=== PATIENT | male | born 1990 | race Hispanic/Latino ===

== ENCOUNTER 2021-10-08 19:20 | Inpatient (IN) | payer SELFPAY ==
[~2021-10-08 19:20] MED LIST: ISOVUE-370 76%-LOCM 1 ML ONE
[2021-10-08 20:01] LABS: #Lymphocytes 0.8 thou/uL (1.20-3.40); #Monocytes 0.3 thou/uL (0.11-0.59); %Basophils 0.2 % (0.0-1.0); %Eosinophils 0.1 % (0.0-10.0); %Lymphocytes 8.4 % (21.0-51.0); %Monocytes 3.3 % (0.0-10.0); Mean Corpuscular HGB CONC 35.3 g/dL (32.0-36.0); Mean Corpuscular Hemoglobin 32.4 pg (27.0-31.0); Mean Corpuscular Volume 91.8 fL (78.0-98.0); Mean Platelet Volume 7.1 fL (7.4-10.4); Platelet Count 180 thou/uL (130-400); RBC Distribution Width 11.9 % (11.5-14.5); Red Blood Cell (RBC) Count 4.96 mill/uL (4.70-6.10); White Blood Cell (WBC) Count 9.1 thou/uL (4.8-10.8)
[2021-10-08 20:21] LABS: ALT (SGPT) 22 U/L (8-55); AST (SGOT) 36 U/L (5-34); Albumin 4.5 g/dL (3.5-5.0); Alkaline Phosphatase 114 U/L (40-110); Anion Gap 18 mmol/L (10-20); BUN (Urea Nitrogen) 12 mg/dL (8.9-20.6); Bilirubin, Total 0.9 mg/dL (0.2-1.2); Calc. Creatinine Clearance 0 mL/min (70-130); Calcium 9.4 mg/dL (7.8-10.44); Carbon Dioxide 24 mmol/L (22-29); Chloride 99 mmol/L (98-107); Estimated GFR 119; Globulin 3.6 g/dL (2.4-3.5); Glucose 131 mg/dL (70-105); Lipase 17 U/L (8-78); Potassium 3.5 mmol/L (3.5-5.1); Protein, Total 8.1 g/dL (6.0-8.3); Sodium 137 mmol/L (136-145)
[2021-10-08] MEDS ORDERED: Dicyclomine 20 MG/2 ML VIAL ONE (20:31)
[2021-10-08] MEDS ORDERED: Ketorolac Tromethamine 30 MG/ML VIAL ONE (20:31)
[2021-10-08] MEDS ORDERED: Ondansetron PF 4 MG/2 ML Vial ONE (20:31)
[2021-10-08] MEDS ORDERED: Acetaminophen 500 MG TAB ONE (20:31)
[2021-10-08] MEDS ORDERED: Pantoprazole 40 MG VIAL ONE (20:59)
[2021-10-08 22:32] LABS: SARS-CoV-2 NAA Rapid Test Not Detected (NotDetected)
[2021-10-08] MEDS ORDERED: Lorazepam (BATCHED) 2 MG/ML SYR ONE (23:13)
[2021-10-08 23:37] LABS: Bilirubin Negative (Negative); Blood, Urine Negative (Negative); Clarity Clear (Clear); Glucose, Urine (Dipstick) Normal (Negative); Ketone, Urine 20 mg/dL (Negative); Leukocyte Negative Leu/uL (Negative); Nitrite Negative (Negative); Protein, Urine (Dipstick) Negative (Neg-Trace); Specific Gravity, Urine 1.042 (1.002-1.036); Urobilinogen Normal mg/dL (Less than 2)
[2021-10-09 00:36] VITALS: BMI 29.7
[2021-10-09] MEDS ORDERED: Ondansetron PF 4 MG/2 ML Vial IVP PRN (00:45)
[2021-10-09] MEDS ORDERED: Acetaminophen 325 MG TAB PO PRN (00:45)
[2021-10-09] MEDS ORDERED: Ondansetron ODT 4 MG TAB SL PRN (00:45)
[2021-10-09] MEDS ORDERED: Lorazepam 2 MG/ML VIAL IM PRN (03:57)
[2021-10-09] MEDS ORDERED: Ondansetron ODT 4 MG TAB PO PRN (03:57)
[2021-10-09] MEDS ORDERED: Lorazepam 1 MG TAB PO PRN (03:57)
[2021-10-09] MEDS ORDERED: Thiamine HCl 200 MG/2 ML VIAL SLOW IVP SCH (04:00)
[2021-10-09] MEDS ORDERED: Electrolyte Replacement Protocol 1 EACH FS SCH (04:00)
[2021-10-09] MEDS: Lorazepam 1 MG TAB PO SCH ×2 (04:19→10:40)
[2021-10-09 05:00] LABS: Amphetamine Not Detected (NotDetected); Barbiturates Screen Not Detected (NotDetected); Benzodiazepine Screen Detected (NotDetected); Cocaine Metabolite Screen Not Detected (NotDetected); Methadone Not Detected (NotDetected); Methamphetamine Not Detected (NotDetected); Opiate Screen Not Detected (NotDetected); Oxycodone Screen Not Detected (NotDetected); Phencyclidine (PCP) Not Detected (NotDetected); THC/Cannabinoid Screen Not Detected (NotDetected); Tricyclic Screen Not Detected (NotDetected)
[2021-10-09] MEDS ORDERED: Sodium Chloride 0.9% 1,000 ML IV SCH ×2 (05:00)
[2021-10-09 05:03] LABS: #Lymphocytes 0.5 thou/uL (1.20-3.40); #Monocytes 0.3 thou/uL (0.11-0.59); #Neutrophils 6.5 thou/uL (1.40-6.50); %Basophils 0.6 % (0.0-1.0); %Eosinophils 0.1 % (0.0-10.0); %Lymphocytes 6.8 % (21.0-51.0); %Monocytes 4.3 % (0.0-10.0); %Neutrophils 88.2 % (42.0-75.0); Hemoglobin 14.9 g/dL (14.0-18.0); Mean Corpuscular HGB CONC 34.4 g/dL (32.0-36.0); Mean Corpuscular Hemoglobin 31.8 pg (27.0-31.0); Mean Corpuscular Volume 92.6 fL (78.0-98.0); Platelet Count 140 thou/uL (130-400); RBC Distribution Width 11.8 % (11.5-14.5); Red Blood Cell (RBC) Count 4.67 mill/uL (4.70-6.10); White Blood Cell (WBC) Count 7.4 thou/uL (4.8-10.8)
[2021-10-09 05:22] LABS: Anion Gap 14 mmol/L (10-20); BUN (Urea Nitrogen) 12 mg/dL (8.9-20.6); Calc. Creatinine Clearance 158 mL/min (70-130); Calcium 8.9 mg/dL (7.8-10.44); Carbon Dioxide 25 mmol/L (22-29); Chloride 99 mmol/L (98-107); Estimated GFR 125; Glucose 104 mg/dL (70-105); Potassium 3.5 mmol/L (3.5-5.1); Sodium 134 mmol/L (136-145)
[2021-10-09] MEDS ORDERED: Piperacillin/Tazobactam 3.375 GM in Sodium Chloride 0.9% 100 ML IVPB SCH ×2 (06:15→10:00)
[2021-10-09] MEDS ORDERED: Lactated Ringer's 1,000 ML IV SCH (07:30)
[2021-10-09] MEDS ORDERED: VANCOMYCIN 2 GRAM/500 ML BAG 2 GM in Premix Bag 1 BAG IVPB SCH (08:00)
[2021-10-09] MEDS ORDERED: Potassium Chloride 20 MEQ TAB PO SCH (08:00)
[2021-10-09] MEDS ORDERED: Folic Acid 1 MG TAB PO SCH (09:00)
[2021-10-09] MEDS ORDERED: Pantoprazole 40 MG VIAL IVP SCH (09:00)
[2021-10-09] MEDS ORDERED: Multivit, Therapeutic 1 TAB PO SCH (09:00)
[2021-10-09 11:41] VITALS: BP 140/97; TEMP 99
[2021-10-09] MEDS ORDERED: VANCOMYCIN 1.25 GM/250 ML BAG 1.25 GM in Premix Bag 1 BAG IVPB SCH (16:00)
[2021-10-10] MEDS ORDERED: Lorazepam 1 MG TAB PO PRN (03:57)
[2021-10-11] MEDS ORDERED: Lorazepam 1 MG TAB PO PRN (03:57)
[2021-10-11] MEDS ORDERED: Lorazepam 0.5 MG TAB PO SCH (04:00)
[2021-10-12] MEDS ORDERED: Lorazepam 0.5 MG TAB PO PRN (03:57)
[2021-10-12] MEDS ORDERED: Thiamine 100 MG TAB PO SCH (09:00)
== END 2021-10-09 16:15 | disposition home or self-care (01) | DRG 896 ==
LOC: ERS 19:20 → 2SW 23:29 → OBSVTOIN 10-09 11:30
PROVIDERS: ADMIT Student in an Organized Health Care Education/Training Program; ATTEND Internal Medicine
DX: F10.239 Alcohol dependence with withdrawal, unspecified (principal); K85.90 Acute pancreatitis without necrosis or infection, unspecified; Z20.822 Contact with and (suspected) exposure to COVID-19; R50.9 Fever, unspecified; Z88.6 Allergy status to analgesic agent; Z71.41 Alcohol abuse counseling and surveillance of alcoholic
CPT/HCPCS: 36415; 71045; 74177; 80048; 80053; 80306; 81003; 83690; 85025; 87040; 87804; 93005; 96361; 96375; C9113; G0378; J1885; J2060; J2405; J2543; J3370; J3411; J3490; J7050; J7120; Q9966; U0002

== ENCOUNTER 2023-06-19 10:19 | Emergency (ER) | payer SELFPAY ==
[2023-06-19] MEDS ORDERED: Ondansetron PF 4 MG/2 ML Vial ONE (10:56)
[2023-06-19] MEDS ORDERED: Thiamine HCl 200 MG/2 ML VIAL ONE (11:01)
[2023-06-19] MEDS ORDERED: LORazepam 2 MG/ML SYR.(CARPUJECT) ONE (11:02)
[2023-06-19 11:13] LABS: #Basophils Less than 0.03 10x3/uL (0.0-0.2); %Basophils 0.3 % (0.0-1.0); %Eosinophils 2.9 % (0.0-10.0); %Lymphocytes 29.1 % (21.0-51.0); %Monocytes 2.9 % (0.0-10.0); %Neutrophils 64.6 % (42.0-75.0); Hematocrit 44.7 % (42.0-52.0); Hemoglobin 15.7 g/dL (14.0-18.0); Mean Corpuscular HGB CONC 35.1 g/dL (32.0-36.0); Mean Corpuscular Hemoglobin 30.8 pg (27.0-31.0); Mean Corpuscular Volume 87.8 fL (78.0-98.0); Mean Platelet Volume 9.7 fL (7.4-10.4); Platelet Count 221 10x3/uL (130-400); RBC Distribution Width 12.6 % (11.5-14.5); Red Blood Cell (RBC) Count 5.09 mill/uL (4.70-6.10)
[2023-06-19 11:29] LABS: ALT (SGPT) 17 U/L (8-55); AST (SGOT) 24 U/L (5-34); Albumin 4.7 g/dL (3.5-5.0); Alkaline Phosphatase 97 U/L (40-110); Anion Gap 19 mmol/L (10-20); BUN (Urea Nitrogen) 11 mg/dL (8.9-20.6); Bilirubin, Total 0.6 mg/dL (0.2-1.2); Calc. Creatinine Clearance 0 mL/min (70-130); Calcium 9.6 mg/dL (7.8-10.44); Carbon Dioxide 22 mmol/L (22-29); Chloride 105 mmol/L (98-107); Estimated GFR 123; Globulin 3.1 g/dL (2.4-3.5); Glucose 134 mg/dL (70-105); Lipase 13 U/L (8-78); Potassium 3.6 mmol/L (3.5-5.1); Protein, Total 7.8 g/dL (6.0-8.3); Sodium 142 mmol/L (136-145)
[2023-06-19 11:32] LABS: Troponin I Less than 0.010 ng/mL (< 0.028)
== END 2023-06-19 13:00 | disposition home or self-care (01) ==
LOC: ERS 10:19
DX: R11.2 Nausea with vomiting, unspecified (principal); F19.10 Other psychoactive substance abuse, uncomplicated; F10.20 Alcohol dependence, uncomplicated
CPT/HCPCS: 80053; 83605; 83690; 84484; 85025; 93005; 96361; 96374; 96375; J2060; J2405; J3411

== ENCOUNTER 2023-08-30 04:50 | Emergency (ER) | payer SELFPAY ==
[2023-08-30] MEDS ORDERED: LORazepam 2 MG/ML SYR.(CARPUJECT) ONE (05:02)
[2023-08-30 05:47] LABS: #Basophils Less than 0.03 10x3/uL (0.0-0.2); #Eosinphils Less than 0.03 10x3/uL (0.0-0.7); %Basophils 0.2 % (0.0-1.0); %Lymphocytes 19.3 % (21.0-51.0); %Monocytes 7.3 % (0.0-10.0); %Neutrophils 73.1 % (42.0-75.0); Hematocrit 39.7 % (42.0-52.0); Hemoglobin 14.1 g/dL (14.0-18.0); Mean Corpuscular HGB CONC 35.5 g/dL (32.0-36.0); Mean Corpuscular Hemoglobin 30.9 pg (27.0-31.0); Mean Corpuscular Volume 87.1 fL (78.0-98.0); Platelet Count 205 10x3/uL (130-400); RBC Distribution Width 13.8 % (11.5-14.5); Red Blood Cell (RBC) Count 4.56 mill/uL (4.70-6.10)
[2023-08-30 06:15] LABS: Acetaminophen Less than 10 mcg/mL (10.0-30.0); Alcohol 108.7 mg/dL (Less than 10); CK (CPK) 114 U/L (30-200); Salicylate Less than 8.0 mg/dL (15.0-30.0)
[2023-08-30 06:16] LABS: ALT (SGPT) 16 U/L (8-55); AST (SGOT) 18 U/L (5-34); Albumin 4.2 g/dL (3.5-5.0); Alkaline Phosphatase 74 U/L (40-110); Anion Gap 18 mmol/L (10-20); BUN (Urea Nitrogen) 8 mg/dL (8.9-20.6); Bilirubin, Total 0.5 mg/dL (0.2-1.2); Calc. Creatinine Clearance 0 mL/min (70-130); Calcium 8.8 mg/dL (7.8-10.44); Carbon Dioxide 21 mmol/L (22-29); Chloride 105 mmol/L (98-107); Estimated GFR 123; Globulin 2.9 g/dL (2.4-3.5); Glucose 100 mg/dL (70-105); Protein, Total 7.1 g/dL (6.0-8.3); Sodium 141 mmol/L (136-145)
[2023-08-30] MEDS ORDERED: Potassium Chloride 20 MEQ TAB ONE (10:18)
== END 2023-08-30 10:43 | disposition home or self-care (01) ==
LOC: ERS 04:50
DX: F10.10 Alcohol abuse, uncomplicated (principal); F14.10 Cocaine abuse, uncomplicated; E87.6 Hypokalemia
CPT/HCPCS: 36415; 80053; 80307; 82550; 84484; 85025; 93005; 96361; 96374; J2060

== ENCOUNTER 2023-09-07 04:51 | Emergency (ER) | payer SELFPAY ==
[2023-09-07] MEDS ORDERED: Thiamine HCl 200 MG/2 ML VIAL ONE (05:09)
[2023-09-07] MEDS ORDERED: LORazepam 2 MG/ML SYR.(CARPUJECT) ONE (05:10)
[2023-09-07] MEDS ORDERED: Magnesium 2 GM/50 ML BAG (IN WATER) ONE (05:10)
[2023-09-07] MEDS ORDERED: Ondansetron PF 4 MG/2 ML Vial ONE (05:11)
[2023-09-07 05:27] LABS: #Basophils Less than 0.03 10x3/uL (0.0-0.2); #Eosinphils Less than 0.03 10x3/uL (0.0-0.7); %Basophils 0.3 % (0.0-1.0); %Eosinophils 0.3 % (0.0-10.0); %Lymphocytes 52.5 % (21.0-51.0); %Monocytes 5.1 % (0.0-10.0); %Neutrophils 41.5 % (42.0-75.0); Hematocrit 43.3 % (42.0-52.0); Hemoglobin 15.3 g/dL (14.0-18.0); Mean Corpuscular HGB CONC 35.3 g/dL (32.0-36.0); Mean Corpuscular Hemoglobin 31.6 pg (27.0-31.0); Mean Corpuscular Volume 89.5 fL (78.0-98.0); Mean Platelet Volume 9.5 fL (7.4-10.4); Platelet Count 225 10x3/uL (130-400); RBC Distribution Width 13.3 % (11.5-14.5); Red Blood Cell (RBC) Count 4.84 mill/uL (4.70-6.10)
[2023-09-07 05:54] LABS: Troponin I Less than 0.010 ng/mL (< 0.028)
[2023-09-07 06:04] LABS: Lipase 20 U/L (8-78)
[2023-09-07 06:07] LABS: Acetaminophen Less than 10 mcg/mL (10.0-30.0); Salicylate Less than 8.0 mg/dL (15.0-30.0)
[2023-09-07 06:15] LABS: ALT (SGPT) 11 U/L (8-55); AST (SGOT) 22 U/L (5-34); Albumin 4.5 g/dL (3.5-5.0); Alkaline Phosphatase 81 U/L (40-110); Anion Gap 15 mmol/L (10-20); BUN (Urea Nitrogen) 18 mg/dL (8.9-20.6); Bilirubin, Total 0.5 mg/dL (0.2-1.2); CK (CPK) 92 U/L (30-200); Calc. Creatinine Clearance 0 mL/min (70-130); Calcium 9.1 mg/dL (7.8-10.44); Carbon Dioxide 23 mmol/L (22-29); Chloride 109 mmol/L (98-107); Estimated GFR 126; Globulin 2.8 g/dL (2.4-3.5); Glucose 96 mg/dL (70-105); Potassium 3.7 mmol/L (3.5-5.1); Protein, Total 7.3 g/dL (6.0-8.3); Sodium 143 mmol/L (136-145)
== END 2023-09-07 06:43 | disposition home or self-care (01) ==
LOC: ERS 04:51
DX: F10.139 Alcohol abuse with withdrawal, unspecified (principal); R11.10 Vomiting, unspecified; Y90.0 Blood alcohol level of less than 20 mg/100 ml
CPT/HCPCS: 80053; 80307; 82550; 83690; 84484; 85025; 93005; 96365; 96367; 96375; J2060; J2405; J3411; J3475

== ENCOUNTER 2023-09-20 12:15 | Observation (INO) | payer SELFPAY ==
[2023-09-20 12:36] LABS: #Basophils 0.04 10x3/uL (0.0-0.2); #Eosinphils Less than 0.03 10x3/uL (0.0-0.7); %Basophils 0.5 % (0.0-1.0); %Eosinophils 0.1 % (0.0-10.0); %Lymphocytes 39.9 % (21.0-51.0); %Monocytes 4.7 % (0.0-10.0); %Neutrophils 54.6 % (42.0-75.0); Hematocrit 48.6 % (42.0-52.0); Hemoglobin 16.7 g/dL (14.0-18.0); Mean Corpuscular HGB CONC 34.4 g/dL (32.0-36.0); Mean Corpuscular Hemoglobin 30.6 pg (27.0-31.0); Mean Platelet Volume 9.3 fL (7.4-10.4); Platelet Count 270 10x3/uL (130-400); RBC Distribution Width 13.2 % (11.5-14.5); Red Blood Cell (RBC) Count 5.46 mill/uL (4.70-6.10)
[2023-09-20 13:01] LABS: Lipase 15 U/L (8-78)
[2023-09-20 13:03] LABS: Acetaminophen Less than 10 mcg/mL (10.0-30.0); Alcohol 115.2 mg/dL (Less than 10); Salicylate Less than 8.0 mg/dL (15.0-30.0)
[2023-09-20 13:06] LABS: ALT (SGPT) 15 U/L (8-55); AST (SGOT) 22 U/L (5-34); Albumin 4.7 g/dL (3.5-5.0); Alkaline Phosphatase 91 U/L (40-110); Anion Gap 19 mmol/L (10-20); BUN (Urea Nitrogen) 12 mg/dL (8.9-20.6); Bilirubin, Total 0.7 mg/dL (0.2-1.2); CK (CPK) 118 U/L (30-200); Calc. Creatinine Clearance 0 mL/min (70-130); Calcium 9.7 mg/dL (7.8-10.44); Carbon Dioxide 21 mmol/L (22-29); Chloride 104 mmol/L (98-107); Estimated GFR 120; Globulin 3.7 g/dL (2.4-3.5); Glucose 89 mg/dL (70-105); Potassium 3.5 mmol/L (3.5-5.1); Protein, Total 8.4 g/dL (6.0-8.3); Sodium 140 mmol/L (136-145)
[2023-09-20] MEDS ORDERED: Thiamine HCl 200 MG/2 ML VIAL ONE (13:40)
[2023-09-20] MEDS ORDERED: Diazepam 10 MG/2 ML SYRINGE ONE ×2 (13:40→16:13)
[2023-09-20 15:15] LABS: Bacteria/HPF None Seen HPF (None Seen); Bilirubin Negative (Negative); Blood, Urine Negative (Negative); CAUTI Indications for Culture Dysuria,urgency,freq; Clarity Clear (Clear); Glucose, Urine (Dipstick) Normal (Negative); Ketone, Urine 40 mg/dL (Negative); Leukocyte Negative Leu/uL (Negative); Nitrite Negative (Negative); Protein, Urine (Dipstick) Negative (Neg-Trace); RBC/HPF None Seen HPF (0-3); Specific Gravity, Urine 1.018 (1.002-1.036); Squamous Epithelial None Seen HPF (0-3); Urobilinogen Normal mg/dL (Less than 2); WBC/HPF 0-3 HPF (0-3); pH, Urine 5.5 (5.0-9.0)
[2023-09-20 15:32] LABS: Urine Culture Reflex No No
== END 2023-09-20 17:28 | disposition left against medical advice (07) ==
LOC: ERS 12:15 → ERHOLD 16:13
PROVIDERS: ADMIT Family Medicine; ATTEND Family Medicine
DX: F10.239 Alcohol dependence with withdrawal, unspecified (principal); Z88.6 Allergy status to analgesic agent
CPT/HCPCS: 36415; 80053; 80307; 81001; 82550; 83690; 85025; 93005; G0378; J3360; J3411

== ENCOUNTER 2023-10-05 07:35 | Observation (INO) | payer SELFPAY ==
[2023-10-05] MEDS ORDERED: Ondansetron PF 4 MG/2 ML Vial ONE (07:54)
[2023-10-05] MEDS ORDERED: Pantoprazole 40 MG VIAL ONE (07:54)
[2023-10-05 08:09] LABS: #Basophils Less than 0.03 10x3/uL (0.0-0.2); #Eosinphils Less than 0.03 10x3/uL (0.0-0.7); %Basophils 0.5 % (0.0-1.0); %Eosinophils 0.3 % (0.0-10.0); %Lymphocytes 53.8 % (21.0-51.0); %Neutrophils 39.1 % (42.0-75.0); Hematocrit 40.7 % (42.0-52.0); Hemoglobin 14.2 g/dL (14.0-18.0); Mean Corpuscular HGB CONC 34.9 g/dL (32.0-36.0); Mean Corpuscular Hemoglobin 31.9 pg (27.0-31.0); Mean Corpuscular Volume 91.5 fL (78.0-98.0); Mean Platelet Volume 9.4 fL (7.4-10.4); Platelet Count 205 10x3/uL (130-400); RBC Distribution Width 13.1 % (11.5-14.5); Red Blood Cell (RBC) Count 4.45 mill/uL (4.70-6.10)
[2023-10-05 08:28] LABS: Lipase 27 U/L (8-78)
[2023-10-05 08:29] LABS: ALT (SGPT) 12 U/L (8-55); AST (SGOT) 18 U/L (5-34); Acetaminophen Less than 10 mcg/mL (10.0-30.0); Albumin 3.9 g/dL (3.5-5.0); Alcohol 191.6 mg/dL (Less than 10); Alkaline Phosphatase 107 U/L (40-110); Anion Gap 15 mmol/L (10-20); BUN (Urea Nitrogen) 11 mg/dL (8.9-20.6); Bilirubin, Total 0.2 mg/dL (0.2-1.2); CK (CPK) 104 U/L (30-200); Calc. Creatinine Clearance 0 mL/min (70-130); Calcium 8.6 mg/dL (7.8-10.44); Carbon Dioxide 23 mmol/L (22-29); Chloride 109 mmol/L (98-107); Estimated GFR 126; Globulin 2.9 g/dL (2.4-3.5); Glucose 125 mg/dL (70-105); Potassium 3.4 mmol/L (3.5-5.1); Protein, Total 6.8 g/dL (6.0-8.3); Salicylate Less than 8.0 mg/dL (15.0-30.0); Sodium 144 mmol/L (136-145)
[2023-10-05] MEDS ORDERED: Lorazepam 2 MG/ML VIAL ONE (09:10)
[2023-10-05] MEDS ORDERED: Ondansetron PF 4 MG/2 ML Vial IVP PRN (10:16)
[2023-10-05] MEDS ORDERED: Acetaminophen 325 MG TAB PO PRN (10:16)
[2023-10-05] MEDS ORDERED: Lorazepam 2 MG/ML VIAL IM PRN (10:18)
[2023-10-05] MEDS ORDERED: Ondansetron ODT 4 MG TAB PO PRN (10:18)
[2023-10-05] MEDS ORDERED: Electrolyte Replacement Protocol FS PRN (10:30)
[2023-10-05] MEDS ORDERED: Electrolyte Replacement Protocol 1 EACH FS SCH (10:30)
[2023-10-05 11:09] LABS: Bilirubin, Direct 0.1 mg/dL (0.1-0.3); Magnesium 1.9 mg/dL (1.6-2.6); Phosphorus 2.2 mg/dL (2.3-4.7)
[2023-10-05] MEDS: Multivitamins, Adult 10 ML, Thiamine HCl 100 MG, Folic Acid 1 MG in Dextrose 5 %-0.45 %... IV SCH (12:05)
[2023-10-05] MEDS: Lidocaine 2% Viscous 10 mL, Alum & Magn 30 mL SSW SCH (12:06)
[2023-10-05] MEDS ORDERED: Lorazepam 1 MG TAB ONE (12:11)
[2023-10-05] MEDS: Lorazepam 1 MG TAB PO SCH (12:16)
[2023-10-05 12:17] VITALS: BMI 29.0
[2023-10-05] MEDS: Thiamine HCl 200 MG/2 ML VIAL SLOW IVP SCH (18:26)
[2023-10-05] MEDS: Sodium Chloride 0.45% 1,000 ML IV SCH (18:26)
[2023-10-05] MEDS: Magnesium 2 GM/50 ML(in water) 2 GM in Premix 1 BAG IVPB SCH (18:26)
[2023-10-05] MEDS: Potassium Bicarbonate/Cit Ac 20 MEQ TAB PO SCH (18:40)
[2023-10-05 19:33] VITALS: BP 120/70; TEMP 98.9
[2023-10-05] MEDS ORDERED: Pantoprazole DR 40 MG TAB PO SCH (21:00)
[2023-10-05] MEDS ORDERED: busPIRone HCl 10 MG TAB PO SCH (21:00)
[2023-10-06] MEDS ORDERED: Enoxaparin 40 MG (0.4 mL) SYRINGE SC SCH (09:00)
[2023-10-06] MEDS ORDERED: Folic Acid 1 MG TAB PO SCH (09:00)
[2023-10-06] MEDS ORDERED: Multivit, Therapeutic 1 TAB PO SCH (09:00)
[2023-10-06] MEDS ORDERED: Lorazepam 1 MG TAB PO PRN (10:18)
[2023-10-07] MEDS ORDERED: Lorazepam 1 MG TAB PO PRN (10:18)
[2023-10-08] MEDS ORDERED: Thiamine 100 MG TAB PO SCH (09:00)
[2023-10-08] MEDS ORDERED: Lorazepam 0.5 MG TAB PO PRN (10:18)
== END 2023-10-05 22:18 | disposition left against medical advice (07) ==
LOC: ERS 07:35 → ERHOLD 09:53 → 2SW 13:11
PROVIDERS: ADMIT Internal Medicine; ATTEND Internal Medicine
DX: F10.130 Alcohol abuse with withdrawal, uncomplicated (principal); F41.9 Anxiety disorder, unspecified; R11.2 Nausea with vomiting, unspecified; F12.10 Cannabis abuse, uncomplicated; E87.6 Hypokalemia; Z79.82 Long term (current) use of aspirin; Z79.899 Other long term (current) drug therapy; Y90.5 Blood alcohol level of 100-119 mg/100 ml
CPT/HCPCS: 36415; 80053; 80307; 82248; 82550; 83605; 83690; 83735; 84100; 85025; 93005; C9113; G0378; J2060; J2405; J3411; J7042

== ENCOUNTER 2023-10-15 02:26 | Emergency (ER) | payer SELFPAY ==
[2023-10-15] MEDS ORDERED: Lorazepam 2 MG/ML VIAL ONE (03:00)
[2023-10-15] MEDS ORDERED: Ondansetron PF 4 MG/2 ML Vial ONE (03:00)
[2023-10-15 03:19] LABS: #Basophils 0.03 10x3/uL (0.0-0.2); #Eosinphils Less than 0.03 10x3/uL (0.0-0.7); %Basophils 0.6 % (0.0-1.0); %Eosinophils 0.4 % (0.0-10.0); %Lymphocytes 42.2 % (21.0-51.0); %Monocytes 6.9 % (0.0-10.0); %Neutrophils 49.5 % (42.0-75.0); Hematocrit 45.3 % (42.0-52.0); Hemoglobin 16.2 g/dL (14.0-18.0); Mean Corpuscular HGB CONC 35.8 g/dL (32.0-36.0); Mean Corpuscular Hemoglobin 32.2 pg (27.0-31.0); Mean Corpuscular Volume 90.1 fL (78.0-98.0); Mean Platelet Volume 9.3 fL (7.4-10.4); Platelet Count 244 10x3/uL (130-400); RBC Distribution Width 13.2 % (11.5-14.5); Red Blood Cell (RBC) Count 5.03 mill/uL (4.70-6.10)
[2023-10-15 03:34] LABS: Lipase 15 U/L (8-78)
[2023-10-15 03:36] LABS: ALT (SGPT) 15 U/L (8-55); AST (SGOT) 24 U/L (5-34); Acetaminophen Less than 10 mcg/mL (10.0-30.0); Albumin 4.3 g/dL (3.5-5.0); Alcohol 91.2 mg/dL (Less than 10); Alkaline Phosphatase 95 U/L (40-110); Anion Gap 18 mmol/L (10-20); BUN (Urea Nitrogen) 10 mg/dL (8.9-20.6); Bilirubin, Total 0.2 mg/dL (0.2-1.2); Calc. Creatinine Clearance 0 mL/min (70-130); Calcium 9.1 mg/dL (7.8-10.44); Carbon Dioxide 21 mmol/L (22-29); Chloride 107 mmol/L (98-107); Estimated GFR 122; Globulin 3.5 g/dL (2.4-3.5); Glucose 115 mg/dL (70-105); Potassium 3.9 mmol/L (3.5-5.1); Protein, Total 7.8 g/dL (6.0-8.3); Salicylate Less than 8.0 mg/dL (15.0-30.0); Sodium 142 mmol/L (136-145)
[2023-10-15] MEDS ORDERED: Multivitamins, Adult 10 ML, Thiamine HCl 100 MG, Folic Acid 1 MG in Dextrose 5 %-0.45 %... IV SCH (03:45)
== END 2023-10-15 04:37 | disposition home or self-care (01) ==
LOC: ERS 02:26
DX: F10.239 Alcohol dependence with withdrawal, unspecified (principal); F41.9 Anxiety disorder, unspecified; Z55.6 Problems related to health literacy; Z75.8 Other problems related to medical facilities and other health care
CPT/HCPCS: 36415; 80053; 80307; 83690; 85025; 93005; J2060; J2405; J3411; J7042

== ENCOUNTER 2023-12-28 02:06 | Emergency (ER) | payer SELFPAY ==
[2023-12-28 02:29] LABS: #Basophils Less than 0.03 10x3/uL (0.0-0.2); %Basophils 0.4 % (0.0-1.0); %Eosinophils 0.6 % (0.0-10.0); %Lymphocytes 57.1 % (21.0-51.0); %Monocytes 7.2 % (0.0-10.0); %Neutrophils 34.5 % (42.0-75.0); Hematocrit 41.5 % (42.0-52.0); Hemoglobin 14.7 g/dL (14.0-18.0); Mean Corpuscular HGB CONC 35.4 g/dL (32.0-36.0); Mean Corpuscular Hemoglobin 31.5 pg (27.0-31.0); Mean Corpuscular Volume 88.9 fL (78.0-98.0); Platelet Count 228 10x3/uL (130-400); RBC Distribution Width 13.2 % (11.5-14.5); Red Blood Cell (RBC) Count 4.67 mill/uL (4.70-6.10)
[2023-12-28 02:52] LABS: Acetaminophen Less than 10 mcg/mL (Less than 10); Salicylate Less than 8.0 mg/dL (Less than 8.0)
[2023-12-28 02:53] LABS: ALT (SGPT) 18 U/L (8-55); AST (SGOT) 24 U/L (5-34); Albumin 3.9 g/dL (3.5-5.0); Alkaline Phosphatase 101 U/L (40-110); Anion Gap 15 mmol/L (10-20); BUN (Urea Nitrogen) 12 mg/dL (8.9-20.6); Bilirubin, Total 0.2 mg/dL (0.2-1.2); Calc. Creatinine Clearance 0 mL/min (70-130); Calcium 8.9 mg/dL (7.8-10.44); Carbon Dioxide 22 mmol/L (22-29); Chloride 115 mmol/L (98-107); Estimated GFR 122; Globulin 3.5 g/dL (2.4-3.5); Glucose 115 mg/dL (70-105); Potassium 3.5 mmol/L (3.5-5.1); Protein, Total 7.4 g/dL (6.0-8.3); Sodium 148 mmol/L (136-145)
[2023-12-28] MEDS ORDERED: Lorazepam 1 MG TAB ONE (02:54)
== END 2023-12-28 04:58 | disposition home or self-care (01) ==
LOC: ERS 02:06
DX: F10.239 Alcohol dependence with withdrawal, unspecified (principal)
CPT/HCPCS: 36415; 80053; 80307; 85025; 99284